=== PATIENT | female | born 1945 | race African-American/Black ===

== ENCOUNTER 2019-01-30 12:34 | Emergency (ER) | payer OTHER, BC ==
[~2019-01-30] VITALS: Ht 172.7 cm; Wt 74.4 kg
[~2019-01-30 12:34] MED LIST: ANTIVERT25 MG PO; MOTION RELIEF25 MG PO; TYLENOL EXTRA500 MG PO; VALIUM2 MG PO; ZOFRAN ODT4 MG PO
[2019-01-30 13:08] LABS: ABSOLUTE NEUTROPHILS 2.5 thou/uL (1.4-8.2); BASOPHILS 0.6 % (0.0-2.0); EOSINOPHILS 2.6 % (0.0-3.0); HEMATOCRIT 42.3 % (37.0-47.0); HEMOGLOBIN 14.1 gm/dL (12.0-15.0); LYMPHOCYTES 34.5 % (24.0-44.0); MCH 30.1 pg (26.0-34.0); MCHC 33.4 g/dL (28.0-37.0); MCV 90.1 fL (80.0-100.0); MONOCYTES 8.9 % (1.0-8.0); PLATELET COUNT 198 thou/uL (150-400); POLYS 53.4 % (36.0-66.0); RBC 4.69 mil/uL (4.20-5.00); RDW 13.5 % (10.5-14.5); WBC 4.7 thou/uL (4.0-11.0)
[2019-01-30 13:17] LABS: ANION GAP 7 mmol/L (7-16); BUN 15 mg/dL (7-18); CHLORIDE 106 mmol/L (98-107); CO2 29 mmol/L (21-32); GLUCOSE 117 mg/dL (74-106); POTASSIUM 4.4 mmol/L (3.5-5.1); SODIUM 142 mmol/L (136-145)
[2019-01-30 13:27] LABS: ALBUMIN 3.5 g/dL (3.4-5.0); SGOT 19 U/L (15-37); SGPT 25 U/L (30-65); TOTAL BILIRUBIN 0.5 mg/dL (<0.1-1.0); TOTAL PROTEIN 7.1 g/dL (6.4-8.2); TROPONIN-I <0.06 ng/mL (<0.06)
[2019-01-30 16:40] VITALS: BP 136/62
--- NOTE | 2019-01-30 16:44 | EKG ---
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: : 1945 Requested By: Ajith Leija Order Number: [id number] MD: Nico Ayon Measurements Intervals [place] Rate: 70 P: 53 NE: 148 QRS: 39 QRSD: 78 T: 71 QT: 391 QTc: 422 Interpretive Statements Sinus rhythm Probable left atrial enlargement Compared to ECG 03/13/2016 12:41:40 No significant changes Electronically Signed On 01-30-2019 16:44:28 CDT by Nico Ayon [email or web address] ��������������������������������������������� <ELECTRONICALLY SIGNED> ���������������������������������������� By: Nico Ayon MD ��������������������������������������������� 01/30/19 1644 1239 1239 Nico Ayon MD /EPI
== END 2019-01-30 16:41 | disposition home or self-care (01) ==
LOC: ER 12:34
PROVIDERS: Emergency Medicine
DX: M79.602 Pain in left arm (principal); M54.2 Cervicalgia

== ENCOUNTER 2019-12-11 19:02 | Emergency (ER) | payer OTHER, BC ==
[~2019-12-11] VITALS: Ht 172.7 cm; Wt 81.7 kg
[2019-12-11] MEDS ORDERED: NORCO 5-325 TA1 EAC1 PO (20:33)
[2019-12-11 23:18] VITALS: BP 148/70
--- NOTE | 2019-12-12 12:53 | EKG ---
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 : 1945 Requested By: Ann-Marie Gudino Order Number: [id number] MD: Nico Ayon Measurements Intervals [place] Rate: 71 P: 58 [place]: 148 QRS: 25 QRSD: 83 T: 79 QT: 403 QTc: 438 Interpretive Statements Sinus rhythm Probable left atrial enlargement Probable left ventricular hypertrophy Nonspecific T abnrm, anterolateral leads Compared to ECG 01/30/2019 12:39:54 No significant changes Electronically Signed On 12-12-2019 12:52:38 SALES REPRESENTATIVE PUBLICATIONS by Nico Ayon [email or web address] <ELECTRONICALLY SIGNED> By: Nico Ayon MD 12/12/19 1252 18 18 Nico Ayon MD /EPI
== END 2019-12-11 23:19 | disposition home or self-care (01) ==
LOC: ER 19:02
DX: M25.561 Pain in right knee (principal); Z90.49 Acquired absence of other specified parts of digestive tract; W00.0XXA Fall on same level due to ice and snow, initial encounter; Y93.89 Activity, other specified; Y92.89 Other specified places as the place of occurrence of the external cause; Y99.8 Other external cause status

== ENCOUNTER 2020-02-22 20:41 | Emergency (ER) | payer OTHER, BC ==
[~2020-02-22] VITALS: Ht 172.7 cm; Wt 78.9 kg
[~2020-02-22 20:41] MED LIST changes: +NORCO 5-325 TA1 EAC1 PO
[2020-02-22] MEDS ORDERED: DUEXIS 800-26.1 EACH PO (21:08)
[2020-02-22 21:46] LABS: ABSOLUTE NEUTROPHILS 3.8 thou/uL (1.4-8.2); EOSINOPHILS 2.3 % (0.0-3.0); HEMATOCRIT 41.7 % (37.0-47.0); HEMOGLOBIN 13.8 gm/dL (12.0-15.0); LYMPHOCYTES 31.4 % (24.0-44.0); MCH 30.4 pg (26.0-34.0); MCV 92.2 fL (80.0-100.0); MONOCYTES 10.7 % (1.0-8.0); PLATELET COUNT 224 thou/uL (150-400); POLYS 54.6 % (36.0-66.0); RBC 4.52 mil/uL (4.20-5.00); RDW 13.6 % (10.5-14.5); WBC 6.9 thou/uL (4.0-11.0)
[2020-02-22 21:56] LABS: ANION GAP 4 mmol/L (7-16); BUN 16 mg/dL (7-18); CALCIUM 8.5 mg/dL (8.5-10.1); CHLORIDE 103 mmol/L (98-107); CO2 28 mmol/L (21-32); CREATININE 1.2 mg/dL (0.6-1.0); GLUCOSE 110 mg/dL (74-106); POTASSIUM 5.1 mmol/L (3.5-5.1); SODIUM 135 mmol/L (136-145)
[2020-02-22 22:05] LABS: TROPONIN-I <0.06 ng/mL (<0.06)
[2020-02-22 23:40] VITALS: BP 162/84
--- NOTE | 2020-02-23 08:08 | EKG ---
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: [facility] : 1945 Requested By: Ajith Leija Order Number: [id number] MD: Elliot Bridges Measurements Intervals [place] Rate: 73 P: 57 [place]: 158 QRS: 44 QRSD: 84 T: 76 QT: 398 QTc: 439 Interpretive Statements Sinus rhythm Minimal ST elevation, inferior leads Compared to ECG 12/11/2019 20:19:28 No significant change was found Electronically Signed On 02-23-2020 8:07:01 CDT by Elliot Bridges [email or web address] <ELECTRONICALLY SIGNED> By: Elliot Bridges MD, FAC 02/23/20 0807 18 18 Elliot Bridges MD, [facility] /EPI
== END 2020-02-22 23:45 | disposition home or self-care (01) ==
LOC: ER 20:41
PROVIDERS: Emergency Medicine
DX: B34.9 Viral infection, unspecified (principal); Z86.718 Personal history of other venous thrombosis and embolism; Z03.818 Encounter for observation for suspected exposure to other biological agents ruled out; Z90.49 Acquired absence of other specified parts of digestive tract

== ENCOUNTER 2020-12-23 09:14 | Emergency (ER) | payer OTHER, BC ==
[~2020-12-23] VITALS: Ht 172.7 cm; Wt 87.5 kg
[~2020-12-23 09:14] MED LIST changes: +DUEXIS 800-26.1 EACH PO
[2020-12-23 09:42] LABS: ABSOLUTE NEUTROPHILS 3.3 thou/uL (1.4-8.2); BASOPHILS 0.7 % (0.0-2.0); EOSINOPHILS 2.2 % (0.0-3.0); HEMATOCRIT 44.8 % (37.0-47.0); HEMOGLOBIN 14.7 gm/dL (12.0-15.0); LYMPHOCYTES 27.8 % (24.0-44.0); MCH 30.1 pg (26.0-34.0); MCHC 32.9 g/dL (28.0-37.0); MCV 91.4 fL (80.0-100.0); MONOCYTES 11.8 % (1.0-8.0); PLATELET COUNT 238 thou/uL (150-400); POLYS 57.5 % (36.0-66.0); RDW 13.5 % (10.5-14.5); WBC 5.7 thou/uL (4.0-11.0)
[2020-12-23 10:06] LABS: BUN 15 mg/dL (7-18); CALCIUM 8.7 mg/dL (8.5-10.1); LIPASE 101 U/L (73-393); SGPT 19 U/L (30-65); TOTAL BILIRUBIN 0.7 mg/dL (0.2-1.0); TROPONIN-I <0.06 ng/mL (<0.06)
[2020-12-23 10:13] LABS: URINE BILIRUBIN NEGATIVE (Negative); URINE BLOOD NEGATIVE (Negative); URINE CLARITY CLEAR; URINE COLOR YELLOW; URINE GLUCOSE-RANDOM* NEGATIVE (Negative); URINE KETONES NEGATIVE (Negative); URINE LEUKOCYTES-REFLEX NEGATIVE (Negative); URINE NITRITE-REFLEX NEGATIVE (Negative); URINE PROTEIN (DIPSTICK) NEGATIVE (Negative); URINE SPECIFIC GRAVITY 1.015 (1.005-1.035); URINE UROBILINOGEN 0.2 E.U./dl (0.2-1.0)
[2020-12-23 10:23] LABS: ALBUMIN 3.8 g/dL (3.4-5.0); AMYLASE 122 U/L (25-115); ANION GAP 15 mmol/L (7-16); CHLORIDE 102 mmol/L (98-107); CO2 23 mmol/L (21-32); DIRECT BILIRUBIN < 0.1 mg/dL (<0.1-0.2); GLUCOSE 129 mg/dL (74-106); MAGNESIUM 2.1 mg/dL (1.8-2.4); PHOSPHORUS 3.4 mg/dL (2.5-4.9); POTASSIUM 4.6 mmol/L (3.5-5.1); SGOT 31 U/L (15-37)
[2020-12-23 10:25] LABS: SODIUM 140 mmol/L (136-145)
[2020-12-23] MEDS ORDERED: TESSALON PERLE100 M1 PO (12:36)
[2020-12-23] MEDS ORDERED: TYLENOL325 M1 PO (12:36)
[2020-12-23] MEDS ORDERED: VANACOF DM LIQ240 ML PO (12:36)
[2020-12-23 12:58] VITALS: BP 141/78
--- NOTE | 2020-12-23 16:04 | EKG ---
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 : 1945 Requested By: Branden Rinaldi Order Number: [id number] MD: Juancarlos Colon Measurements Intervals [place] Rate: 85 P: 45 [place]: 149 QRS: 13 QRSD: 78 T: 69 QT: 365 QTc: 434 Interpretive Statements Sinus rhythm Probable left atrial enlargement Left ventricular hypertrophy Compared to ECG 02/22/2020 21:19:18 Left ventricular hypertrophy now present ST (T wave) deviation no longer present Electronically Signed On 12-23-2020 16:03:53 SCROLL MACHINE OPERATOR by Juancarlos Colon [email or web address] <ELECTRONICALLY SIGNED> By: Juancarlos Colon MD, [facility] 12/23/20 1603 2 2 Juancarlos Colon MD, FACC /EPI
== END 2020-12-23 12:58 | disposition home or self-care (01) ==
LOC: ER 09:14
PROVIDERS: Emergency Medicine
DX: J06.9 Acute upper respiratory infection, unspecified (principal); N39.3 Stress incontinence (female) (male); Z90.49 Acquired absence of other specified parts of digestive tract; Z20.822 Contact with and (suspected) exposure to COVID-19

== ENCOUNTER 2021-05-02 09:42 | Emergency (ER) | payer OTHER, BC ==
[~2021-05-02] VITALS: Ht 172.7 cm; Wt 84.8 kg
[~2021-05-02 09:42] MED LIST changes: +TESSALON PERLE100 M1 PO; +TYLENOL325 M1 PO; +VANACOF DM LIQ240 ML PO
[2021-05-02 10:18] LABS: BASOPHILS 0.7 % (0.0-2.0); EOSINOPHILS 2.7 % (0.0-3.0); HEMATOCRIT 44.4 % (37.0-47.0); HEMOGLOBIN 14.6 gm/dL (12.0-15.0); LYMPHOCYTES 31.2 % (24.0-44.0); MCHC 32.8 g/dL (28.0-37.0); MCV 91.6 fL (80.0-100.0); MONOCYTES 8.9 % (1.0-8.0); PLATELET COUNT 213 thou/uL (150-400); POLYS 56.5 % (36.0-66.0); RBC 4.84 mil/uL (4.20-5.00); RDW 13.7 % (10.5-14.5); WBC 5.3 thou/uL (4.0-11.0)
[2021-05-02 10:25] LABS: ANION GAP 9 mmol/L (7-16); BUN 14 mg/dL (7-18); CHLORIDE 106 mmol/L (98-107); CO2 24 mmol/L (21-32); GLUCOSE 118 mg/dL (74-106); POTASSIUM 4.5 mmol/L (3.5-5.1); SODIUM 139 mmol/L (136-145)
[2021-05-02] MEDS ORDERED: TUSSIN MUC100 MG/5 M PO (10:31)
[2021-05-02] MEDS ORDERED: MUCINEX FA PO (10:31)
[2021-05-02] MEDS ORDERED: OMEGA XL PO (10:32)
[2021-05-02] MEDS ORDERED: SLEEP AID50 MG PO (10:32)
[2021-05-02] MEDS ORDERED: PREVAGEN PO (10:33)
[2021-05-02 10:35] LABS: ALBUMIN 3.7 g/dL (3.4-5.0); SGOT 24 U/L (15-37); SGPT 17 U/L (14-59); TOTAL BILIRUBIN 0.5 mg/dL (0.2-1.0); TOTAL PROTEIN 7.7 g/dL (6.4-8.2); TROPONIN-I <0.06 ng/mL (<0.06)
[2021-05-02] MEDS ORDERED: AMOXICILLIN875 MG PO (14:10)
[2021-05-02] MEDS ORDERED: FLONASE 0.05%50 MCG NARES (14:10)
[2021-05-02 14:11] VITALS: BP 147/69
--- NOTE | 2021-05-02 15:44 | EKG ---
[place] [address] [place] [address] ELECTROCARDIOGRAM REPORT Name: MARGIE TAYLOR Room #: [facility]#: [id number] Admission: 05/02/21 Attend Phys: Discharge: 05/02/21 Date of : 43 Report #: [id number] [facility] ED Test Date: 2021-05-02 Test Time: 09:47:46 Pat Name: MARGIE TAYLOR Department: Room: Gender: F [employer]: : 1945 Requested By: Chad Tello Order Number: [id number] MD: Juancarlos Colon Measurements Intervals [place] Rate: 68 P: 46 [place]: 148 QRS: 12 QRSD: 80 T: 59 QT: 410 QTc: 437 Interpretive Statements Sinus rhythm Probable left atrial enlargement Probable left ventricular hypertrophy Compared to ECG 12/23/2020 09:33:50 No significant changes Electronically Signed On 05-02-2021 15:43:53 CDT by Juancarlos Colon [email or web address] <ELECTRONICALLY SIGNED> By: Juancarlos Colon MD, [facility] 05/02/21 1543 0947 0947 Juancarlos Colon MD, FACC /EPI
== END 2021-05-02 14:11 | disposition home or self-care (01) ==
LOC: ER 09:42
PROVIDERS: Emergency Medicine
DX: R06.00 Dyspnea, unspecified (principal); J01.90 Acute sinusitis, unspecified; B96.89 Other specified bacterial agents as the cause of diseases classified elsewhere; Z79.899 Other long term (current) drug therapy